=== PATIENT | male | born 1965 | race Caucasian/White ===

== ENCOUNTER 2019-08-26 00:47 | Emergency (ER) | payer OTHER, SELFPAY ==
[2019-08-26 01:00] VITALS: BP 160/97; PULSE 89; RESP 20; TEMP 36.6; O2SAT 100
--- NOTE | 2019-08-26 01:22 | ED.WOUNDLAC ---
HPI - Wound/Laceration General Chief Complaint: Wound/Laceration Stated Complaint: left 5th digit laceration Source: patient Mode of arrival: ambulatory Limitations: no limitations History of Present Illness HPI narrative: Patient presents with a laceration that occurred earlier this afternoon while he was using a knife and cut the palmar surface of his left 5th finger approximately 2cm in length well-approximated current no bleeding and is up-to-date with his tetanus shot. Onset (ago): hour(s) Extremity Location: Left: hand (left 5th finger laceration 2 cm length) Place: home Patient tetanus UTD: Yes Context: accidental Associated symptoms: none Related Data Home Medications Medication Instructions Recorded Confirmed No Home Medications 08/26/19 08/26/19 Allergies Allergy/AdvReac Type Severity Reaction Status Date / Time No Known Allergies Allergy Verified 08/26/19 01:19 Review of Systems Review of Systems: All systems reviewed & are unremarkable except as noted in HPI and below PMFSH Past Medical History Medical History Patient denies medical problems Exam Const: General: no acute distress and alert Orientation/consciousness: patient oriented x3 HENMT: Head: normal to inspection Eyes: Conjunctivae: conjunctivae normal Pupils: Equal, round and reactive pupils present Neck: Neck: normal visual inspection Chest: Chest palpation & inspection: normal inspection of the chest Resp: Effort & Inspection: normal respiratory effort Auscultation: clear to auscultation bilaterally Cardio: Rate: regular rate Rhythm: regular rhythm GI: GI Palp: Yes Soft to palpation Skin: General skin exam: normal color Wounds: wounds noted Neuro: General: patient oriented x3, moves all extremities and no meningeal signs Extrem: General: normal to inspection Psych: Mental Status: mental status grossly normal Course Vital Signs Vital signs: Vital Signs Temperature 36.6 C 08/26/19 01:00 Pulse Rate 89 08/26/19 01:00 Respiratory Rate 20 08/26/19 01:00 Blood Pressure 160/97 H 08/26/19 01:00 Pulse Oximetry 100 08/26/19 01:00 Temperature 36.6 C 08/26/19 01:00 Pulse Rate 89 08/26/19 01:00 Respiratory Rate 20 08/26/19 01:00 Blood Pressure 160/97 H 08/26/19 01:00 Pulse Oximetry 100 08/26/19 01:00 Procedures Laceration Laceration 1: Date: 08/26/19 Time: 01:25 Site: hand Side (If applicable): left Size (cm): 2 Description: linear and clean Pre-repair: wound explored and irrigated ====== Skin Level ====== Skin layer closed with: dermabond ====== Subcutaneous Layer ====== ====== Muscle Layer ====== ====== Tendon Layer ====== MDM - Wound/Laceration Differential Diagnosis Differential diagnosis: Likely laceration Critical Care Time Critical Care Time Critical Care Time: No Discharge Plan Discharge Clinical Impression: Laceration Patient Disposition: Home, Self-Care Condition: Stable Instructions: Antibiotic Form, Skin Adhesive Care (ED), Laceration (ED) Additional Instructions: Follow-up with primary care physician if symptoms persist or worsen. Prescriptions: No Action No Home Medications RF: 0 Follow-up/Referrals: Paulino Mancini DO [Primary Care Provider] - Time of Disposition: 01:27
[2019-08-26 01:32] VITALS: BP 135/92; RESP 18; O2SAT 100
== END 2019-08-26 01:35 | disposition home or self-care (01) ==
PROVIDERS: Emergency Provider Emergency Medicine; PCP Family Medicine
DX: S61.217A Laceration without foreign body of left little finger without damage to nail, initial encounter (principal); W45.8XXA Other foreign body or object entering through skin, initial encounter
CPT/HCPCS: 12001; 99282

== ENCOUNTER 2020-11-07 17:31 | Emergency (ER) | payer OTHER, SELFPAY ==
--- NOTE | ~2020-11-07 | XR_ITS ---
XR hand RT min 3V 11/07/2020 17:49 Indication: Right hand pain Procedure: 3 views right hand Comparison: No prior studies for comparison. Findings: There is fixed flexion deformity of the right fifth finger at the PIP joint. No evidence fo r subluxation or dislocation. Mild soft tissue swelling. There is mild polyarticular osteoarthritis. Normal mineralization. No acute fracture or traumatic malalignment. No foreign bodies. Impression: 1: No acute fracture. Reviewed, dictated and finalized at location A. Impression: 1: No acute fracture.
[2020-11-07 17:43] VITALS: BP 143/95; PULSE 78; RESP 20; TEMP 37
--- NOTE | 2020-11-07 17:58 | ED.UPPEXIN ---
HPI - Extremity Injury (Upper) General Chief Complaint: Extremity Injury, Upper Stated Complaint: smashed hand Time Seen by Provider: 11/07/20 17:50 Source: patient and family Mode of arrival: ambulatory Limitations: no limitations History of Present Illness HPI narrative: Patient comes in after smashing his left hand two days ago. He has smashed the index and ring fingers and comes in now because those fingers are somewhat swollen and stiff. Neither finger has any significant wound that I cans see. Both fingers have areas woodall skin may be starting to come off, but I see no evidence it is coming off now. Wounds have been kept clean. These fingers do not appear to be infected. Because fingers have been sore he comes in, and this has been ongoing since the injury. He has no other symptoms. complaint: injury to: left (hand) Onset (ago): day(s) Other injuries: none Place: home Severity: moderate Severity scale (1-10): 4 Relieving factors: cold therapy and immobilization Exacerbating factors: rest Context: direct blow Associated symptoms: denies other symptoms Treatments prior to arrival: cold therapy Related Data Home Medications Medication Instructions Recorded Confirmed No Home Medications 11/07/20 11/07/20 Allergies Allergy/AdvReac Type Severity Reaction Status Date / Time No Known Allergies Allergy Verified 11/07/20 17:56 Review of Systems Constitutional: Constitutional: Reports no additional constitutional complaints Eyes: Eyes: Reports no additional eye complaints ENT: Reports system reviewed and no additional complaints, except as documented Cardiovascular: Cardiovascular: Reports no additional cardiovascular complaints Respiratory: Respiratory: Reports no additional respiratory complaints Gastrointestinal: Gastrointestinal: Reports no additional gastrointestinal complaints Genitourinary: Genitourinary: Reports no additional male genitourinary complaints Musculoskeletal: Musculoskeletal: Reports no additional musculoskeletal complaints Integumentary/Breasts: Skin/Breast: Reports system reviewed and no additional complaints, except as docu Neurologic: Reports system reviewed and no additional complaints, except as documented Psychiatric: Psychiatric: Reports no additional psychiatric complaints Endocrine: Endocrine: Reports no additional endocrine complaints Hematologic/Lymphatic: Hematologic/Lymphatic: Reports no additional hematologic/lymphatic complaints Allergic/Immunologic: Allergic/Immunologic: Reports no additional allergic/immunologic complaints PMFSH Past Medical History Medical History Nicotine dependence, cigarettes, uncomplicated Surgical History Surgical History History of back surgery Family History Family History Mother No problems noted. Social History Social History Smoking status: Current every day smoker Tobacco type: cigarettes Alcohol intake: never Substance use: never Exam Const: General: no acute distress and alert Orientation/consciousness: patient oriented x3 HENMT: Head: normal to inspection Ears: external ears normal and TM's normal bilaterally General nose exam: Normal external nose present and Normal nares present Mouth: Yes Normal oral and palatal mucosa present Throat: posterior oropharynx normal Eyes: Conjunctivae: conjunctivae normal Neck: Neck: normal visual inspection and no lymphadenopathy Chest: Chest palpation & inspection: normal inspection of the chest Resp: Effort & Inspection: normal respiratory effort Auscultation: clear to auscultation bilaterally Cardio: Rate: regular rate Rhythm: regular rhythm GI: GI Palp: Yes Soft to palpation (non tender) Back/Spine/Pelvis: Back: no CVA tenderness Skin: Gene
[2020-11-07] MEDS: KETOROLAC (*BKC) 60 MG/2 ML VIAL IM (18:12)
[2020-11-07 18:28] VITALS: BP 142/88; PULSE 75; RESP 20; TEMP 36.9; O2SAT 100
== END 2020-11-07 18:31 | disposition home or self-care (01) ==
PROVIDERS: Emergency Provider Emergency Medicine; PCP Nurse Practitioner Family
DX: S67.190A Crushing injury of right index finger, initial encounter (principal); S67.194A Crushing injury of right ring finger, initial encounter; X58.XXXA Exposure to other specified factors, initial encounter
CPT/HCPCS: 73130; 96372; 99283; J1885

== ENCOUNTER 2021-04-15 05:24 | Emergency (ER) | payer OTHER, SELFPAY ==
[2021-04-15 05:36] VITALS: BP 154/97; PULSE 99; RESP 18; TEMP 36.4; O2SAT 99
--- NOTE | 2021-04-15 05:50 | ED.NECK ---
HPI - Neck Pain/Injury General Chief Complaint: Neck Pain/Injury Stated Complaint: neck pain Source: patient and RN notes reviewed Mode of arrival: ambulatory Limitations: no limitations History of Present Illness complaint: neck pain Onset (ago): day(s) (2) Place: home Radiation: right lateral and right shoulder Severity: moderate Quality: dull, aching and spasming Duration: intermittent and progressively worsening Relieving factors: none Exacerbating factors: movement of neck Context: unknown Associated symptoms: none Treatments prior to arrival: none Related Data Home Medications Medication Instructions Recorded Confirmed No Home Medications 11/07/20 04/15/21 Allergies Allergy/AdvReac Type Severity Reaction Status Date / Time No Known Allergies Allergy Verified 11/07/20 17:56 Review of Systems Review of Systems: All systems reviewed & are unremarkable except as noted in HPI and below Constitutional: Constitutional: Denies chills and Denies fever(s) PMFSH Past Medical History Medical History (Updated 04/15/21 @ 06:01 by Tay Zuñiga MD) Nicotine dependence, cigarettes, uncomplicated Surgical History Surgical History History of back surgery Family History Family History Mother No problems noted. Social History Social History Smoking status: Current every day smoker Tobacco type: cigarettes Alcohol intake: never Substance use: never Exam Const: General: healthy appearing, no acute distress and alert Nutritional Appearance: well nourished and thin Orientation/consciousness: patient oriented x3 HENMT: Head: normal to inspection Ears: external ears normal Mouth: Yes moist mucous membranes Eyes: Conjunctivae: conjunctivae normal Pupils: Equal, round and reactive pupils present EOM: EOMs intact bilaterally Neck: Neck: normal visual inspection Resp: Effort & Inspection: normal respiratory effort Auscultation: clear to auscultation bilaterally Cardio: Rate: regular rate Rhythm: regular rhythm GI: GI Palp: Yes Soft to palpation and No Tenderness to palpation present (GI) Auscultation: normal bowel sounds Back/Spine/Pelvis: Cervical Spine: cervical muscular tenderness (on the right), pain with cervical ROM, cervical spasm and cervical ROM abnormal (slightly decreased when turning to the left) Skin: General skin exam: normal color Rashes: no rashes Neuro: General: patient oriented x3, moves all extremities and no meningeal signs Speech: normal speech Gait exam (Neuro): Normal gait present Extrem: General: normal to inspection and no clubbing, cyanosis or edema Psych: Appearance: grossly normal and well kempt Mental Status: mental status grossly normal Affect: normal affect Attitude: cooperative Thought content: Yes Normal thought content present Course Vital Signs Vital signs: Vital Signs Temperature 36.4 C 04/15/21 05:36 Pulse Rate 99 04/15/21 05:36 Respiratory Rate 18 04/15/21 05:36 Blood Pressure 154/97 H 04/15/21 05:36 Pulse Oximetry 99 04/15/21 05:36 Temperature 36.4 C 04/15/21 05:36 Pulse Rate 99 04/15/21 05:36 Respiratory Rate 18 04/15/21 05:36 Blood Pressure 154/97 H 04/15/21 05:36 Pulse Oximetry 99 04/15/21 05:36 Discharge Plan Discharge Clinical Impression: Strain of neck muscle Qualifiers: Encounter type: initial encounter Qualified Code(s): S16.1XXA - Strain of muscle, fascia and tendon at neck level, initial encounter Patient Disposition: Home, Self-Care Condition: Stable Instructions: Cervical Strain (ED) Prescriptions: New nabumetone 750 mg tablet 750 mg PO BID 10 Days Qty: 20 RF: 0 cyclobenzaprine 10 mg tablet 10 mg PO TID PRN (Reason: muscle spasm) Qty: 14 RF: 0 No Action No Home Medications RF:
[2021-04-15] MEDS: KETOROLAC (*BKC) 60 MG/2 ML VIAL IM (06:02)
[2021-04-15 06:12] VITALS: BP 150/92; PULSE 88; RESP 18; TEMP 36.3; O2SAT 99
== END 2021-04-15 06:17 | disposition home or self-care (01) ==
PROVIDERS: Emergency Provider Emergency Medicine; PCP Nurse Practitioner Family
DX: S16.1XXA Strain of muscle, fascia and tendon at neck level, initial encounter (principal)
CPT/HCPCS: 96372; 99283; J1885

== ENCOUNTER 2021-09-12 18:25 | Outpatient (CLI) | payer OTHER, SELFPAY ==
--- NOTE | ~2021-09-12 | XR_ITS ---
EXAMINATION: XR shoulder RT min 2V INDICATION: Right shoulder pain TECHNIQUE: Four views of the right shoulder are submitted. COMPARISON: None FINDINGS: Normal alignment. No fracture. There is mild osteoarthritis of the acromioclavicular joint. Surgical changes are noted in the cervical spine. Soft tissues are unremarkable. IMPRESSION: 1. No acute osseous abnormality. Reviewed, dictated and finalized at location F. RT WRITER
== END 2021-09-12 18:26 | disposition home or self-care (01) ==
LOC: CHSLAB 18:27
PROVIDERS: PCP Nurse Practitioner Family; Visit Provider Nurse Practitioner Family
DX: M25.511 Pain in right shoulder (principal)
CPT/HCPCS: 73030

== ENCOUNTER 2021-10-03 11:58 | Outpatient (CLI) | payer OTHER, SELFPAY ==
--- NOTE | ~2021-10-03 | XR_ITS ---
XR cervical spine 4-5V 10/03/2021 12:15 Indication: Neck pain Procedure: 5 views cervical spine Comparison: No prior studies for comparison. Findings: There is straightening of cervical lordosis. There is anterior cervical fusion at C5-7. The there is multilevel uncinate and facet hypertrophy. Lung apices are normal. Odontoid process is norm al. No prevertebral soft tissue swelling. Impression: 1: Moderate cervical spondylosis with fusion at C5-7. Reviewed, dictated and finalized at location B. Impression: 1: Moderate cervical spondylosis with fusion at C5-7.
== END 2021-10-03 11:59 | disposition home or self-care (01) ==
LOC: CHSIMG 12:00
PROVIDERS: PCP Nurse Practitioner Family; Visit Provider Nurse Practitioner Family
DX: M54.12 Radiculopathy, cervical region (principal)
CPT/HCPCS: 72050

== ENCOUNTER 2021-10-09 16:40 | Outpatient (RCR) | payer OTHER, SELFPAY ==
--- NOTE | 2021-10-09 17:45 | PTOPEVAL ---
Thank you for referring Wilbert Gaxiola to [facility].? The patient is scheduled to be seen for therapy? ____x/week for ___ weeks. Please review, sign, date and return this plan of care MARKUS. I agree with and certify that the following plan of care is medically necessary. Referring Physician Date Admitting Provider: Attending Provider: Emily Raymond NP Referring Provider: LynettePT Outpatient Evaluation Start: 10/09/21 17:01 Freq: Status: Active Protocol: Document 10/09/21 17:00 [facility] (Rec: 10/09/21 17:44 [facility] [id number]) Therapy Assessment Status Assessment Status Assessment Status Evaluation Outpatient Past Medical History Musculoskeletal History Hx Osteomyelitis Yes: left ankle surgery Hx Other Musculoskeletal Disorders Yes: neck surgery 2010 Other History Hx Other Surgeries Yes: right hand surgery Evaluation Information Problem Diagnosis cervical spondylosis, cervical radiculopathy R side. Onset 09/25/21 Additional Evaluation Detail quick dash = 13% funcationally declined NDI = 12% functionally declined Subjective Information patient reports he has had Query Text:As Reported By Patient/ fusion of the C5-C7 cervical Family spine with cadaver bone. he reports he is now losing strength in his R arm. he reports the neck has also been bothering him. he reports he has had xrays of the neck and R shoulder. he reports the R biceps is getting smaller. he reports he had no injury. he reports no numbness or tingling in the R arm. he reports he has decreased symptoms when doing less. 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 Prior Level of Function Comments Additional Prior Level of Function patient reports prior to 8-9 Comments months ago, no issues with the R arm. he reports no difficulty swinging a hammer prior but now is almost unable . 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 Pain Assessment Timing of Pain Assessment Timing of Pain Assessment Assessment Pain Scale Pain Scale Used Numeric (1 - 10) Self Report [place]
--- NOTE | 2021-10-30 17:48 | PTOPEVAL ---
Thank you for referring Wilbert Gaxiola to [facility].? The patient is scheduled to be seen for therapy? ____x/week for ___ weeks. Please review, sign, date and return this plan of care MARKUS. I agree with and certify that the following plan of care is medically necessary. Referring Physician Date Admitting Provider: Attending Provider: Emily Raymond NP Referring Provider: WILLIAMS Outpatient Evaluation Start: 10/09/21 17:01 Freq: Status: Active Protocol: Document 10/30/21 17:00 [facility] (Rec: 10/30/21 17:48 [facility] [id number]) Therapy Assessment Status Assessment Status Assessment Status Progress Outpatient Past Medical History Musculoskeletal History Hx Osteomyelitis Yes: left ankle surgery Hx Other Musculoskeletal Disorders Yes: neck surgery 2010 Other History Hx Other Surgeries Yes: right hand surgery Evaluation Information Problem Diagnosis cervical spondylosis, cervical radiculopathy R side. Onset 09/25/21 Subjective Information patient reports he has Query Text:As Reported By Patient/ experienced less pain overall, Family but reports in the last week he has still experienced a 4/ 10 pain in the neck prior to switching to a less heavy lifting and stressful job. he reports overall he feels he is getting better, but does continue to have some R UE symptoms to the elbow. Pain Assessment Timing of Pain Assessment Timing of Pain Assessment Assessment Pain Scale Pain Scale Used Numeric (1 - 10) Self Report Pain Assessment Neck Reported Pain Level 1 Greatest Pain Intensity 4 Pain Score Pain Score 1: Self Report Interventions Used Interventions Used By Clinicians Activity or ADL's,Electrical Stimulation,Exercise,Heat Cervical and Lumbar ROM Cervical ROM Cervical Flexion (0-60) 52 Query Text:Active in Degrees Cervical Extension (0-70) 40 Query Text:Active in Degrees Cervical Lateral Flexion Right (0-50) 40 Query Text:Active in Degrees Cervical Lateral Flexion Left (0-50) 40 Query Text:Active in Degrees Cervical Rotation Right (0-90) 60 Query Text:Active in Degrees Cervical Rotation Left (0-90) 55 Query Text:Active in Degrees Upper Extremity Muscle Strength Testing Scapular/Shoulder Right Shoulder Flexion Strength 4- Good - Shoulder Abduction Strength 4- Good - Shoulder Medial Rotation Strength 4+ Good + Shoulder Lateral Rotation Strength 3+ Fair
== END 2021-10-30 09:20 | disposition home or self-care (01) ==
LOC: CHSPT 16:40
PROVIDERS: PCP Nurse Practitioner Family; Visit Provider Nurse Practitioner Family
DX: M54.12 Radiculopathy, cervical region (principal); M25.511 Pain in right shoulder; M47.812 Spondylosis without myelopathy or radiculopathy, cervical region
CPT/HCPCS: 97014; 97110; 97140; 97161; G0283

== ENCOUNTER 2022-04-01 09:07 | Outpatient (CLI) | payer OTHER, SELFPAY ==
--- NOTE | ~2022-04-01 | MR_ITS ---
EXAMINATION: MR shoulder RT wo con DATE: 04/01/2022 10:39 INDICATION: Right shoulder pain TECHNIQUE: Magnetic resonance imaging (MRI) of the right shoulder was performed without intravenous c ontrast. Sequences included axial PD-weighted FS FSE, coronal oblique PD-weighted FS FSE, coronal obl ique T2-weighted FS FSE, sagittal PD-weighted FS FSE, and sagittal T1-weighted SE. COMPARISON: Right shoulder radiographs dated 09/12/2021 FINDINGS: Coracoacromial arch: The acromion undersurface is curved in morphology (type II). The coracoacromial ligament is normal. M ild acromioclavicular osteoarthritis. There is a small corticated ossicle articulating with the poste rior margin of the lateral head of the clavicle which could represent either developmentally unfused accessory apophyseal center, heterotopic ossification or chronic nonunited fracture fragment related to old trauma. Rotator cuff: Mild supraspinatus tendinopathy without tear. The infraspinatus, teres minor and subscapularis tendon s are normal. Normal rotator cuff muscle bulk and signal. Biceps tendon, glenoid labrum and glenohumeral cartilage: Long head of the biceps tendon is normal. The inferior and posterior labrum are small. There is shall ow cleft at the chondral labral junction at the 10:00-11:00 position of the glenoid labrum without si gnificant extension into the labrum proper. There is partial thickness cartilage loss at the cephalad half the glenoid with relatively smooth chondral surface. Fluid: Physiologic amount of fluid in the glenohumeral joint and biceps tendon sheath. No loose osteochondr al bodies. Small amount of fluid in the subacromial/subdeltoid bursa consistent with mild bursitis. Bones: Normal marrow signal with no edema, fracture or pathologic marrow replacing process. IMPRESSION: 1. Mild right glenohumeral osteoarthritis with small shallow tear at the posterosuperior chondral lab ral junction and small posterior and inferior labrum likely related to chronic degeneration. 2. Mild supraspinatus tendinopathy without tear. 3. Mild subacromial/subdeltoid bursitis. Reviewed, dictated and finalized at location A. IMPRESSION: 1. Mild right glenohumeral osteoarthritis with small shallow tear at the medical and health services manager osuperior chondral labral junction and small posterior and inferior labrum like ly related to chronic degeneration. 2. Mild supraspinatus tendinopathy without tear. 3. Mild subacromial/subdeltoid bursitis.
== END 2022-04-01 09:08 | disposition home or self-care (01) ==
LOC: CHSIMG 09:08
PROVIDERS: PCP Nurse Practitioner Family; Visit Provider Nurse Practitioner Family
DX: M25.511 Pain in right shoulder (principal)
CPT/HCPCS: 73221

== ENCOUNTER 2023-05-16 09:48 | Emergency (ER) | payer OTHER, SELFPAY ==
[2023-05-16 09:50] VITALS: BP 151/97; PULSE 80; RESP 18; TEMP 36.3; O2SAT 99
[2023-05-16 09:52] VITALS: BP 157/97; PULSE 73; RESP 17; TEMP 36.3; O2SAT 100
--- NOTE | 2023-05-16 09:56 | ED.WOUNDLAC ---
HPI - Wound/Laceration General Chief Complaint: Wound/Laceration Stated Complaint: R wrist laceration Time Seen by Provider: 05/16/23 09:55 Source: patient Mode of arrival: ambulatory Limitations: no limitations History of Present Illness HPI narrative: this is a 57-year-old male that presents with a laceration to the radial surface of his right wrist well-approximated about 2.5cm that occurred earlier today with an exacto knife, currently not bleeding no numbness or tingling has good sensation in his fingers has a brisk strong radial pulse on the right. Patient is up-to-date with his tetanus no other symptoms. Onset (ago): hour(s) Location: other Extremity Location: Right: wrist ( 2.5cm non gaping laceration to the right wrist currently not bleeding) Place: home Patient tetanus UTD: Yes Context: accidental Associated symptoms: none Related Data Home Medications Medication Instructions Recorded Confirmed No Home Medications 09/16/22 05/16/23 Allergies Allergy/AdvReac Type Severity Reaction Status Date / Time No Known Allergies Allergy Verified 05/16/23 09:51 Review of Systems Review of Systems: All systems reviewed & are unremarkable except as noted in HPI and below PMFSH Past Medical History Medical History (Updated 05/16/23 @ 10:00 by Nathan Wright MD) Nicotine dependence, cigarettes, uncomplicated Surgical History Surgical History History of back surgery Family History Family History Mother No problems noted. Social History Social History Smoking status: Current every day smoker Tobacco type: cigarettes Alcohol intake: never Substance use: never Exam Const: General: healthy appearing and no acute distress Orientation/consciousness: patient oriented x3 Limitations: no limitations Resp: Effort & Inspection: normal respiratory effort Auscultation: clear to auscultation bilaterally Cardio: Rate: regular rate Rhythm: regular rhythm Skin: Wounds: wounds noted Neuro: General: patient oriented x3 Extrem: General: normal to inspection Psych: Mental Status: mental status grossly normal Affect: normal affect Course Course Emergency Course: Patient had Dermabond placed on the laceration site on the right wrist patient tolerated procedure well up-to-date with his tetanus. Vital Signs Vital signs: Vital Signs Temperature 36.3 C L 05/16/23 09:50 Pulse Rate 80 05/16/23 09:50 Respiratory Rate 18 05/16/23 09:50 Blood Pressure 151/97 H 05/16/23 09:50 Pulse Oximetry 99 05/16/23 09:50 Oxygen Delivery Room Air 05/16/23 09:50 Temperature 36.3 C L 05/16/23 09:50 Pulse Rate 80 05/16/23 09:50 Respiratory Rate 18 05/16/23 09:50 Blood Pressure 151/97 H 05/16/23 09:50 Pulse Oximetry 99 05/16/23 09:50 Oxygen Delivery Room Air 05/16/23 09:50 Procedures Laceration Laceration 1: Date: 05/16/23 Time: :59 Site: upper extremity Side (If applicable): right Size (cm): 2.5 Description: linear Pre-repair: irrigated extensively ====== Skin Level ====== Skin layer closed with: dermabond ====== Subcutaneous Layer ====== ====== Muscle Layer ====== ====== Tendon Layer ====== Critical Care Time Critical Care Time Critical Care Time: No Discharge Plan Discharge Clinical Impression: Laceration Patient Disposition: Home, Self-Care Condition: Stable Instructions: Antibiotic Form, Laceration (ED), Skin Adhesive Care (ED) Additional Instructions: Advised follow-up with primary if symptoms persist or worsen. Prescriptions: No Action No Home Medications Follow-up/Referrals: Erin Ann NP [Primary Care Provider] - Time of Disposition: :59
[2023-05-16 10:01] VITALS: BP 145/92
[2023-05-16 10:18] VITALS: BP 145/92; PULSE 73; RESP 17; TEMP 36.3; O2SAT 100
== END 2023-05-16 10:18 | disposition home or self-care (01) ==
LOC: CHSED 10:09
PROVIDERS: Emergency Provider Emergency Medicine; PCP Nurse Practitioner Family
DX: S61.511A Laceration without foreign body of right wrist, initial encounter (principal); F17.200 Nicotine dependence, unspecified, uncomplicated; W26.0XXA Contact with knife, initial encounter
CPT/HCPCS: 12001; 99282

== ENCOUNTER 2025-06-28 15:13 | Outpatient (NON) | payer SELFPAY ==
--- OUTSIDE RECORDS SUMMARY | 2025-06-28 20:17 | XMS_ITS | Clinical Summary ---
Author Organization [facility] [employer] [employer] Address [address] [place] [address] Care Team Providers Care Composition Professor Name Role Phone Unavailable Primary Care Provider Unavailabl e Source Comments [facility],non-owned Affiliates and Associated Physician Practices is amultiple site organization consisting of ambulatory clinics and hospital sitesin [place], [place], [place] and [place]. This disclosure is being madepursuant to the Care Everywhere program and may not contain all information available regarding this patient. Last updated 18.[facility] Allergies No known active allergies Medications * Be aware that medications may not be up to date on this document. Alwaysverify current medications with the patient. fluocinonide (LIDEX) 0.05 % ointment Apply to bumps on arms and neck twice daily. 30 days supply. 60 g 2 04/09/2020 Active Active Problems No known active problems Family History Medical History Relation Name Comments None Known Brother None Known Father None Known Maternal Aunt None Known Maternal Grandfather None Known Maternal Grandmother None Known Maternal Uncle None Known Mother None Known Other None Known Paternal Aunt None Known Paternal Grandfather None Known Paternal Grandmother None Known Paternal Uncle None Known Sister Asthma Neg Hx CVA Neg Hx Cancer - Breast Neg Hx Cancer - Other Neg Hx Cancer - Skin, Melanoma Neg Hx Cancer - Skin, Non Melanoma Neg Hx Eczema Neg Hx Hemophilia Neg Hx Psoriasis Neg Hx Relation Name Status Comments Brother Father Maternal Aunt Maternal Grandfather Maternal Grandmother Maternal Uncle Mother Other Paternal Aunt Paternal Grandfather Paternal Grandmother Paternal Uncle Sister Social History Tobacco Use Types Packs/Day Years Used Date Smoking Tobacco: Every Day Cigarettes Smokeless Tobacco: Current Sex and Gender Information Value Date Recorded Sex Assigned at Not on file Legal Sex Male 1:45 PM CDT Gender Identity Not on file Sexual Orientation Not on file Plan of Treatment Health Maintenance Due Date Last Done Comments COLOGUARD (AGES 45-75) - COL ON CA SCREENING 1967 COLON MONITORING 1967 COLONOSCOPY - COLON CA SCREENING 1967 CT COLONOGRAPHY - COLON CA SCREENING 1967 Colorectal Cancer Screening 1967 FIT - COLON CA SCREENING 1967 FLEX SIG - COLON CA SCREENING 1967 LIPID TESTING 1967 HIV SCREENING 1982 HEPATITIS C SCREENING 07/30/1985 DTAP/TDAP/TD VACCINES (1 - Tdap) 1986 HEPATITIS B VACCINE (1 of 3 - 19+ 3-dose series) 1986 PNEUMOCOCCAL VACCINE 50+ (1 of 1 - PCV) 2017 ZOSTER VACCINE (1 of 2) 2017 DEPRESSION SCREENING 07/20/2024 COVID-19 VACCINE (1 - 2024-2 6 season) 2025 INFLUENZA VACCINE (#1) 2025 HIB VACCINE Aged Out No longer eligi ble based on patient's age to complete this topic HPV VACCINE Aged Out No longer eligi ble based on patient's age to complete this topic MENINGOCOCCAL (Group B) VACC INE SHARED DECISION-MAKING Aged Out No longer eligibl e based on patient's age to complete this topic MENINGOCOCCAL GROUPS A/C/Y/W VACCINE Aged Out No longer eligible b ased on patient's age to complete this topic Insurance [facility]
--- OUTSIDE RECORDS SUMMARY | 2025-06-28 20:17 | XMS_ITS | Clinical Summary ---
Author Organization [facility] Address [address] [place] [id number] Care Team Providers Care Literacy Education Professor Name Role Phone Unavailable Primary Care Provider Unavailabl e Social History Tobacco Use Types Packs/Day Years Used Date Smoking Tobacco: Never Assessed Sex and Gender Information Value Date Recorded Sex Assigned at Not on file Legal Sex Male 6:16 PM CDT Gender Identity Not on file Sexual Orientation Not on file Plan of Treatment Health Maintenance Due Date Last Done Comments Colorectal Cancer Screening Colonoscopy (10 Years) 1967 Annual Physical 1970 Hepatitis C 1985 DTaP, Tdap and Td Vaccines ( 1 - Tdap) 1986 Hepatitis B Vaccines (1 of 3 - 19+ 3-dose series) 1986 Pneumococcal Vaccine: 50+ Ye ars (1 of 1 - PCV) 2017 Zoster Vaccines (1 of 2) 2017 COVID-19 Vaccine ( - 2024-2 6 season) 2025 Influenza Adult (#1) 2025 Hepatitis A Vaccines Aged Out No long er eligible based on patient's age to complete this topic Meningococcal B Vaccine Aged Out No l onger eligible based on patient's age to complete this topic Meningococcal Vaccine Aged Out No claude kristi eligible based on patient's age to complete this topic RSV Immunizations Under 20 Months Aged Out No longer eligible based on patient's age to complete this topic
== END 2025-06-28 15:14 | disposition home or self-care (01) ==
LOC: CHSLAB 15:15
PROVIDERS: Visit Provider Nurse Practitioner Family
DX: L02.811 Cutaneous abscess of head [any part, except face] (principal)
CPT/HCPCS: 87070; 87075; 87186